=== PATIENT | male | born 1980 | race Caucasian/White ===

== ENCOUNTER → 2018-04-19 | Outpatient (CLI) | payer OTHER ==
--- NOTE | 2018-04-19 12:07 | CONS ---
Date/Time of Note Date/Time of Note DATE: 04/19/18 TIME: 12:03 Consult Date/Type/Reason Admit Date/Time Initial Consult Date Subjective 37-year-old [id number] male following up 4 weeks status post traumatic right shoulder dislocation. Overall he is doing better. He has been following the previous restrictions. He denies numbness and tingling. He is looking forward to starting therapy. Objective Weight: 160 pounds Height: 5 foot 5 inches Temperature: 90.0 Heart Rate: 83 Blood Pressure: 119/72 Respiratory Rate: 12 Exam General Examination: General Appearance Awake, alert, in no acute distress, pleasant and cooperative. Heart regular rhythm. Lungs breathing comfortably, no tachypnea or dyspnea. MUSCULOSKELETAL: Right shoulder Skin is intact. There is no atrophy around the shoulder. TTP over the AC joint and the anterior shoulder ----- Active ROM: FE:140 Abd: 110 ER: 60 Range of motion limited by pain ----- Sensation intact to light touch in a median, ulnar, radial, and axillary distribution. Motor is intact in a median, ulnar, radial, anterior interosseous, and posterior interosseous nerve distribution. Radial and ulnar artery are +2. Wrist extension and flexion are intact. Compartments are soft Assessment/Plan Chief Complaint/Hosp Course 37-year-old [id number] male 4 weeks status post traumatic right shoulder dislocation. He is significantly improved on examination today. Plan: Start physical therapy for range of motion, stabilization, strengthening of the shoulder girdle. If patient continues to have symptoms or issues after 6-8 weeks of physical therapy he is to return for clinic for reevaluation and possible MRI of the right shoulder. YVONNE DIEZ MD Apr 19, 2018 12:07
== END | disposition home or self-care (01) ==
LOC: HKI 10:17
PROVIDERS: ATTEND Orthopaedic Surgery Adult Reconstructive Orthopaedic Surgery
DX: S43.004D Unspecified dislocation of right shoulder joint, subsequent encounter (principal); X58.XXXD Exposure to other specified factors, subsequent encounter
CPT/HCPCS: G0463